=== PATIENT | female | born 1995 | race Caucasian/White ===

== ENCOUNTER 2018-11-22 10:28 | Outpatient (REF) | payer BC, SELFPAY ==
--- NOTE | 2018-11-22 09:30 | PAPFT_PTH ---
PATIENT: BRENDA BLANTON LOC: [facility] U#:[id number] AGE/SX: 22/F ROOM: RE11/22/[address]: Opal Henning : 1995 BED: DIS: 11/22/2018 SPEC #: [id number] RECD: 11/23/18 12:56 STATUS: TIARRA REErnst #: [id number] JOSE: 11/22/18 09:[address]: Opal Henning DEPT: [facility] Cytology RECD BY: Kiera Ramirez Tissues: 1 - CX/ENDOCX FOR PAP SMEARS Procedures: PAP THIN PREP/[facility] Screening Comments: [id number]
== END 2018-11-22 10:48 ==
LOC: NCHCN 10:28
PROVIDERS: PCP Registered Nurse; Visit Provider Registered Nurse
DX: Z12.4 Encounter for screening for malignant neoplasm of cervix (principal)
CPT/HCPCS: 88142